=== PATIENT | male | born 1980 | race Caucasian/White ===

== ENCOUNTER 2016-05-27 18:18 | Emergency (ER) | payer OTHER ==
[2016-05-27 18:49] LABS: BASOPHILS 0.6 % (0.0-2.0); EOSINOPHILS 3.3 % (0-7); HEMATOCRIT 47.6 % (42.0-54.0); HEMOGLOBIN 16.7 g/dL (13.5-17.5); LYMPHOCYTES 40.9 % (15-50); MCH 31.5 pg (26.0-34.0); MCHC 35.1 g/dL (31.0-37.0); MCV 89.6 fL (80.0-100.0); MEAN PLATELET VOLUME 9.9 fL (7.4-10.4); MONOCYTES 4.6 % (2-11); NEUTROPHILS 50.6 % (40-80); PLATELET COUNT 247 10x3/uL (130-400); RBC 5.31 10x6/uL (4.20-6.10); RDW 13.1 % (11.5-14.5); WBC 7.2 10x3/uL (4.8-10.8)
== END 2016-05-27 21:47 | disposition home or self-care (01) ==
LOC: D.ER 18:18
PROVIDERS: Emergency Medicine
DX: L03.115 Cellulitis of right lower limb (principal); M79.671 Pain in right foot; F17.200 Nicotine dependence, unspecified, uncomplicated